=== PATIENT | female | born 1995 | race Caucasian/White ===

== ENCOUNTER 2017-10-20 18:56 | Inpatient (IN) | payer OTHER ==
[~2017-10-20] VITALS: Ht 165.1 cm; Wt 80.5 kg
[2017-10-20] MEDS ORDERED: LACTATED RINGER'S 1000ML 1,000 ML IV PRN (20:24)
[2017-10-20] MEDS ORDERED: PENICILLIN G POTASSIUM IV 6 MU in DEXTROSE 5% 250ML 250 ML IV STA (20:30)
[2017-10-20] MEDS ORDERED: LACTATED RINGER'S 1000ML 500 ML IV PRN (20:46)
[2017-10-20] MEDS: LACTATED RINGER'S 1000ML 1,000 ML IV SCH (20:48)
[2017-10-20] MEDS ORDERED: OXYTOCIN 30 UNITS/500ML NSS IV PRN (21:00)
[2017-10-20 21:05] LABS: HEMATOCRIT 37.4 % (37-47); MEAN CELL VOLUME 88.6 fL (80-100); MEAN CORPUSCULAR HEMOGLOBIN 30.8 pg (25-34); MEAN CORPUSCULAR HGB CONC 34.8 g/dl (32-36); MEAN PLATELET VOLUME 10.1 fL (7.4-10.4); PLATELET COUNT 176 K/uL (130-400); RED BLOOD COUNT 4.22 M/uL (4.2-5.4); WHITE BLOOD COUNT 8.73 K/uL (4.8-10.8)
--- NOTE | 2017-10-20 21:49 | HISTORY & PHYSICAL EXAMINATION ---
DATE OF ADMISSION: 10/20/2017 HISTORY OF PRESENT ILLNESS: The patient is a 22-year-old G1, P0, due date is 10/21/2017, making her 39 weeks and 6 days today. The patient reports spontaneous rupture of membranes at 1500 hours. She presented to labor and delivery this evening. On arrival to labor and delivery, she had no shortness of breath, no chills, no fever. Nitrazine was positive. The patient was examined by a nurse and found to have gross pooling and her pelvic exam was 3 cm, 60% effaced, and -2 station. Bedside ultrasound showed cephalic presentation. Decision therefore made to admit patient and anticipate vaginal delivery. The patient has irregular contractions at 4-6 minutes with moderate intensity. The patient is positive group B strep. COURSE: Has been unremarkable. PAST MEDICAL HISTORY: The patient has history of asthma-induced bronchospasm. PAST SURGICAL HISTORY: None. ALLERGIES: ZITHROMAX. SOCIAL HISTORY: The patient denies tobacco, drug or alcohol use. FAMILY HISTORY: Unremarkable. PHYSICAL EXAMINATION: GENERAL: Well-developed, well-nourished black female in no acute distress. HEART: S1, S2, regular rhythm and rate. LUNGS: Clear to auscultation bilaterally. ABDOMEN: Gravid. heart rate category 1 tracing. PELVIC: 3 cm, 60% effaced, -2 station. Bedside ultrasound cephalic presentation. EXTREMITIES: No cyanosis, clubbing or edema. ASSESSMENT AND PLAN: A 22-year-old 1, para 0, at 39 weeks and 6 days, term premature rupture of membranes, fluid on rupture of membranes is clear. The patient ruptured at 1800 hours. The patient is positive group B strep. Plan therefore is to admit patient, start patient on antibiotics for GBS prophylaxis, and anticipate vaginal delivery.
[2017-10-20 22:00] VITALS: Ht 165.1 cm; Wt 80.5 kg
[2017-10-20] MEDS ORDERED: PRENTAB26 PO (22:10)
[2017-10-21] MEDS: PENICILLIN G POTASSIUM IV 3 MU in DEXTROSE 5% 100ML 100 ML IV PRN ×2 (01:30→05:37)
[2017-10-21] MEDS ORDERED: EpHEDrine SULFATE INJ 50 MG/ML AMP ONE (02:33)
[2017-10-21] MEDS ORDERED: FENTANYL CITRATE INJ 50 MCG/1 ML 2 ML VIAL ONE (02:33)
[2017-10-21] MEDS ORDERED: BUPIVACAINE 0.25% 30 ML VIAL ONE (02:33)
[2017-10-21] MEDS ORDERED: FENTANYL 2MCG/ML ROPIV 1.25MG/ML 100ML BAG EPI ONE (02:33)
[2017-10-21] MEDS ORDERED: NALOXONE HCL INJ 1 MG in SODIUM CHLORIDE 0.9% 1000ML 1,000 ML IV PRN (03:36)
[2017-10-21] MEDS ORDERED: LACTATED RINGER'S 1000ML 500 ML IV PRN (03:36)
[2017-10-21] MEDS: LACTATED RINGER'S 1000ML 1,000 ML IV SCH (03:42)
[2017-10-21] MEDS ORDERED: NALBUPHINE HCL INJ 10 MG/ML AMP IV PRN (03:45)
[2017-10-21] MEDS ORDERED: EpHEDrine SULFATE INJ 50 MG/ML AMP IV PRN (03:45)
[2017-10-21] MEDS ORDERED: PROMETHAZINE HCL INJ 6.25 MG in SODIUM CHLORIDE 0.9% 50ML 50 ML IV PRN (03:45)
[2017-10-21] MEDS ORDERED: DiphenhydrAMINE HCL 50 MG/ML VIAL IV PRN (03:45)
[2017-10-21] MEDS ORDERED: NALOXONE HCL INJ 0.4 MG/1 ML VIAL/CARP IV PRN (03:45)
[2017-10-21] MEDS ORDERED: ONDANSETRON INJ 2 MG/ML 2 ML VIAL IV PRN (03:45)
[2017-10-21] MEDS: FENTANYL 2MCG/ML ROPIV 1.25MG/ML 100ML BAG EPI PRN ×2 (05:38→06:51)
[2017-10-21] MEDS ORDERED: MISOPROSTOL 200 MCG TAB ONE (07:33)
[2017-10-21 07:46] LABS: BENZODIAZEPINE, URINE NEG (NEG); COCAINE,URINE NEG (NEG); PHENCYCLIDINE, URINE NEG (NEG)
[2017-10-21] MEDS ORDERED: SUPERCREAM 0.870 % 15GM JAR EXT PRN (08:00)
[2017-10-21] MEDS ORDERED: BENZOCAINE 20% AER SPR 82.5 GM CAN EXT PRN (08:00)
[2017-10-21] MEDS ORDERED: OXYCODONE/ACETAMINOPHEN 5-325 TAB PO PRN (08:00)
[2017-10-21] MEDS ORDERED: LANOLIN OINT EXT PRN ×2 (08:00)
[2017-10-21] MEDS ORDERED: MISOPROSTOL 200 MCG TAB PR SCH (08:00)
[2017-10-21] MEDS ORDERED: ACETAMINOPHEN/CODEINE 300/30MG TAB PO PRN ×2 (08:00)
[2017-10-21] MEDS ORDERED: OXYTOCIN 30 UNITS/500ML NSS IV PRN (08:00)
[2017-10-21] MEDS ORDERED: HYDROCORTISONE ACETATE 25 MG SUPP PR PRN (08:00)
--- NOTE | 2017-10-21 08:41 | Anesthesia Procedure Note ---
Anesthesia Epidural Removal Nt Date & Time Oct 21, 2017 at 08:41 Vital Signs Pain Intensity: 5.0 Notes Mental Status: alert / awake / arousable, participated in evaluation Nausea / Vomiting: adequately controlled Pain: adequately controlled Airway Patency, RR, SpO2: stable & adequate BP & HR: stable & adequate Hydration State: stable & adequate Neuraxial Anesthesia: was administered, sensory block is resolving Anesthetic Complications: no major complications apparent, pt satisfied with anesthetic care Epidural: removed without complications, with tip intact
[2017-10-21] MEDS: IBUPROFEN 600 MG TAB PO PRN ×3 (09:35→17:30)
[2017-10-21] MEDS: DOCUSATE SODIUM 100 MG CAP PO SCH ×2 (13:46→20:24)
[2017-10-21] MEDS: FERROUS SULFATE 325 MG TAB PO SCH (13:46)
[2017-10-21] MEDS: PRENATAL VITAMIN TAB PO SCH (13:46)
[2017-10-21] MEDS: ACETAMINOPHEN 325 MG TAB PO PRN ×2 (13:47→20:25)
[2017-10-21 14:30] VITALS: BP 105/69; PULSE 80; TEMP 36.8
[2017-10-21 20:00] VITALS: BP 118/79; PULSE 72; TEMP 36.8
[2017-10-22 00:50] VITALS: BP 118/74; PULSE 79; TEMP 36.5; O2SAT 99
[2017-10-22] MEDS: IBUPROFEN 600 MG TAB PO PRN ×4 (00:52→22:47)
[2017-10-22 04:45] VITALS: BP 96/63; PULSE 76; TEMP 36.7; O2SAT 99
[2017-10-22 07:46] VITALS: BP 98/65; PULSE 59; TEMP 36.7
[2017-10-22] MEDS: PRENATAL VITAMIN TAB PO SCH (08:14)
[2017-10-22] MEDS: DOCUSATE SODIUM 100 MG CAP PO SCH ×2 (08:14→20:35)
[2017-10-22] MEDS: FERROUS SULFATE 325 MG TAB PO SCH (08:14)
[2017-10-22] MEDS: ACETAMINOPHEN 325 MG TAB PO PRN ×2 (08:16→15:54)
--- NOTE | 2017-10-22 09:57 | OB/GYN Progress Note ---
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 Patient is seen and examined. She feels well, no complaints. Ambulating without dizziness Voiding without difficulty Tolerating regular diet with out N&V Bleeding is minimal No fever/ chills/ CP/ SOB/ N&V/ Leg pain Breast feeding without problems Date Time Temp Pulse Resp B/P (MAP) Pulse Ox O2 Delivery O2 Flow Rate FiO2 10/22/17 08:15 Room Air 10/22/17 07:46 36.7 59 16 98/65 (76) Room Air 10/22/17 04:45 36.7 76 18 96/63 (74) 99 Room Air 10/22/17 00:50 99 Room Air 10/22/17 00:50 36.5 79 18 118/74 (89) 99 Room Air 10/21/17 20:00 36.8 72 16 118/79 (92) Room Air 10/21/17 14:30 Room Air 10/21/17 14:30 36.8 80 20 105/69 (81) Room Air PE: General: Alert, orientedx3, NAD Abd: soft, NT, fundus firm, below Umbilicus Perineum intact, Lochia rubra minimal Ext; NT, no edema AP: 22 yo s/p , ppd# 1 VSS Afebrile doing well Continue routine care All questions were answered D/C home tomorrow
[2017-10-22 10:29] LABS: HEMATOCRIT 38.2 % (37-47)
[2017-10-22 16:25] VITALS: BP 111/71; PULSE 60; TEMP 36.9; O2SAT 98
[2017-10-22] MEDS ORDERED: BISACODYL 5 MG TABEC PO SCH (20:00)
[2017-10-22 23:40] VITALS: BP 116/76; PULSE 70; TEMP 36.4
[2017-10-23 06:43] LABS: HEMATOCRIT 36.8 % (37-47); MEAN CELL VOLUME 88.7 fL (80-100); MEAN CORPUSCULAR HEMOGLOBIN 30.1 pg (25-34); MEAN PLATELET VOLUME 9.9 fL (7.4-10.4); PLATELET COUNT 186 K/uL (130-400); RED BLOOD COUNT 4.15 M/uL (4.2-5.4); WHITE BLOOD COUNT 10.89 K/uL (4.8-10.8)
[2017-10-23] MEDS ORDERED: BISACODYL 10 MG SUPP PR PRN (07:00)
[2017-10-23 07:55] VITALS: BP 112/76; PULSE 95; TEMP 36.6
[2017-10-23] MEDS: DOCUSATE SODIUM 100 MG CAP PO SCH (08:12)
[2017-10-23] MEDS: FERROUS SULFATE 325 MG TAB PO SCH (08:12)
[2017-10-23] MEDS: PRENATAL VITAMIN TAB PO SCH (08:12)
[2017-10-23] MEDS: IBUPROFEN 600 MG TAB PO PRN ×2 (08:13→17:32)
--- NOTE | 2017-10-23 10:04 | OB/GYN Progress Note ---
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 Subjective conversation w/ patient, physical exam Ambulation: ambulating normally Voiding: no voiding problems Passing Gas: Yes Diet Tolerance: Regular Diet Lochia: Moderate Feeding Type: Breast Feeding Objective Vital Signs Date Time Temp Pulse Resp B/P (MAP) Pulse Ox O2 Delivery O2 Flow Rate FiO2 10/23/17 08:00 Room Air 10/23/17 07:55 36.6 95 16 112/76 (88) Room Air 10/22/17 23:40 Room Air 10/22/17 23:40 36.4 70 18 116/76 (89) Room Air 10/22/17 16:25 36.9 60 16 111/71 (84) 98 Room Air 10/22/17 16:25 Room Air Laboratory Results Last 24 Hours Test 10/22/17 10:23 10/23/17 06:09 Hemoglobin 13.2 g/dL 12.5 g/dL Hematocrit 38.2 % 36.8 % White Blood Count 10.89 K/uL Red Blood Count 4.15 M/uL Mean Corpuscular Volume 88.7 fL Mean Corpuscular Hemoglobin 30.1 pg Mean Corpuscular Hemoglobin Concent 34.0 g/dl RDW Standard Deviation 43.8 fL RDW Coefficient of Variation 13.6 % Platelet Count 186 K/uL Mean Platelet Volume 9.9 fL Assessment and Plan Day Number: 3 Continue Routine Care: C/sec day #3 Pt doing well disch home with instructions
[2017-10-23] MEDS ORDERED: CLC100 PO (10:06)
[2017-10-23] MEDS ORDERED: MTR600X PO (10:06)
[2017-10-23] MEDS ORDERED: FRRS300 PO (10:06)
--- NOTE | 2017-10-23 10:07 | Discharge Instructions ---
Discharge Instructions Date of Service Oct 23, 2017. Admission Reason for Admission: R/O Ruptured Membranes Discharge Discharge Diagnosis / Problem: Discharge Goals Goal(s): Routine recovery after delivery Activity Recommendations Activity Limitations: as noted below ACTIVITY RECOMMENDATIONS: * Gradual return to full activity over the next 2-3 weeks. * No lifting - nothing heavier than baby over the next 2-3 weeks. * Do not engage in vigorous exercise, sexual activity or sports until cleared by your physician. * Do not drive or operate any motorized equipment until cleared by your physician. * You may shower/bathe daily. BREAST CARE: If you are not breast feeding: * Wear a supportive bra 24 hours a day for one to two weeks. * Avoid stimulating your breasts and nipples as much as possible during the first few weeks after delivery. * When taking a shower, have the warm water hit your back, not breasts. * When your breasts feel full, apply ice packs. Usually three to four times a day helps ease the discomfort. * Take a mild pain medication (Tylenol/Motrin) when you are uncomfortable. If breast feeding: * Use breast milk to lubricate nipples. Lansinoh cream may be used for sore nipples. You do not need to remove cream prior to breast feeding. If using a different brand of cream, check the label for directions regarding removal of cream prior to nursing. * Wear a supportive bra. * If having problems with breasts or breast feeding, call a car sales consultant or your health care provider. EPISIOTOMY CARE: After delivery, if you have an episiotomy (stitches), the following steps will ease discomfort and aid healing. * For the first 24 hours after delivery, place ice packs next to your episiotomy to help reduce swelling. * After the first 24 hour-period, sitz baths, either portable or in the tub, are suggested. A shower with a shower arm sprayed over the episiotomy may be comforting. * Rachel care should be done after each voiding and bowel movement. Squirt warm water from a plastic bottle over the perineum (region of the body between the anus and urinary opening) and pat dry. * Use Dermoplast to ease discomfort. Shake container. [place] directly over the episiotomy. * Place a Tucks on a clean sanitary pad next to your episiotomy. OVER THE COUNTER MEDICATION: * For discomfort or pain, you may use Acetaminophen (Tylenol), Ibuprofen (Advil ), or Naproxen (Aleve) following the package directions. * For constipation you may use Colace following the package directions. SPECIAL CARE INSTRUCTIONS: When you are discharged from the hospital, it is important for you to follow the instructions listed below: * During the first week at home, you should be able to care for yourself and your baby. In addition, the usual light household activities are encouraged. * Limit your activities to the way you feel. Do not try to clean the house or move furniture. Be sensible. * If you actively engage in sports and have done so up until the time of your delivery, you may resume these activities as soon as you feel able. This may take up to one month or even longer. Use good judgment. * Continue to take your vitamins for at least six weeks after the of your baby. * Your diet need not be limited unless you were on a special diet before your delivery. Breast-feeding mothers need around 2500 calories per day and at least 64-80 ounces of fluid per day (8 to 10 glasses). * You should eat foods from the four major food groups. Crash diets or fad diets are to be avoided. Eating lean meats, fresh fruits and vegetables, low-fat dairy products, high fiber foods and a regular exercise program, will help you get back to your pre- weight without putting your health at risk. * Constipation is sometimes a problem after delivery. Take a mild laxative as needed. If breast feeding, Milk of Magnesia is acceptable to use. You may use a suppository or Fleets enema if no episiotomy. * A daily shower or tub bath is suggested. Be sure to thoroughly and gently dry the perineum. * A bloody vaginal discharge will usually continue until around four weeks post . A small amount of bleeding may continue for as long as six weeks. Vaginal discharge changes from the bright red bleeding after delivery to pink then brownish and finally yellowish-pink before becoming white and disappearing. * Bleeding may increase with activity. Your first period may come in 4-8 weeks. If you are breast feeding, your period may be delayed even longer. * Lorena (sex) can begin whenever both you and your partner feel comfortable and do not have any form of genital infection. It is recommended that you wait until after your return appointment and discuss with your physician. If you have questions, please talk to your health care practitioner. A condom should be used to prevent infection and . * Foreplay, gentle intercourse and lubrication is very important the first several times to prevent pain. A water-based lubricant such as K-Y jelly or Astroglide may be used. * Tampons may be used six weeks after delivery. * Douching should be avoided for 6 weeks after delivery. * If you have RH negative blood and your baby is RH positive, you will receive RHOGAM by injection prior to discharge. The nurse will give you a card to keep with you that has the date and place that you received RHOGAM after delivery. * During your care, you had a Rubella screen done to check for the presence of rubella antibodies in your blood. If your test was negative, you will receive a Rubella vaccine prior to discharge. This vaccine may cause a fever, soreness at the injection site and flu-like symptoms. If these symptoms persist, notify your health care practitioner. is not advised for three months after a Rubella vaccine. There is a higher chance of having a baby with defects if conceived within three months of getting the vaccine. * If you were discharged 24 hours from delivery or before 48 hours: Visiting nurses will come to your home 48 hours after discharge to assess you and your baby. The visiting nurse will meet with you while you are in the hospital to arrange a time and get directions to your home. * Verbalizes understanding of car seat law as reviewed with patient nursing. * Car Seat hand-out given and reviewed with patient by nursing. * Shaken baby information reviewed with patient by nursing. Call you doctor if: * Heavy bleeding (saturating several pads an hour) or passing clots the size of your fist. * A fever >101 degrees F (38.3 degrees C) on two occasions four hours apart and/or chills. * Unusual pain in the pelvic or vaginal areas. * "Baby Blues" lasting longer than two weeks. If you have any questions or concerns, call your health care practitioner at . FOLLOW-UP VISIT: * Please call the office at to schedule a 6 week examination. It is important you keep this appointment. * It is important for you to make arrangements for either yearly or twice yearly check-ups thereafter. . Current Hospital Diet Patient's current hospital diet: Regular OB Diet Discharge Diet Recommended Diet: Regular Diet Pending Studies Studies pending at discharge: no Medical Emergencies . Who to Call and When: Medical Emergencies: If at any time you feel your situation is an emergency, please call 911 immediately. . Non-Emergent Contact Non-Emergency issues call your: Specialist . . "Provider Documentation" section prepared by Harmeet Penaloza. . VTE Core Measure Inpt VTE Proph given/why not?: Treatment not indicated
[2017-10-23] MEDS ORDERED: DIPHTHERIA/TETANUS/PERTUSSIS 0.5 ML SYR/VIAL IM. ONE (11:00)
[2017-10-23] MEDS ORDERED: MISC-696 EXT (12:31)
[2017-10-23 17:30] VITALS: BP 123/73; PULSE 64; TEMP 36.9
[2017-10-23] MEDS: ACETAMINOPHEN 325 MG TAB PO PRN (17:35)
[2017-10-23 22:30] VITALS: BP_DIAS 73; PULSE 64; TEMP 36.9
--- NOTE | 2017-11-02 22:56 | OPERATIVE REPORT ---
DATE OF OPERATION: 10/21/2017 DELIVERY NOTE The patient delivered a live male on 10/21/2017 at 0715 hours. weight 7 pounds 3 ounces, that is 3273 grams. was delivered in left occiput anterior presentation. There was no nuchal cord. Infant was placed on mother's abdomen, cord clamped and cut. Cord blood was obtained. Placenta was spontaneously delivered as 3-vessel cord. Estimated blood loss was 500 mL. Inspection of the perineum showed a second-degree midline laceration which was repaired in layers with 2-0 Vicryl. There was good hemostasis at end of the procedure. Infant's weight as stated above is 3273 grams. was 8 and 9. All instruments were removed from the vagina including retractors, needles and sponges and accounted for x2. Baby and mother are doing well in stable condition. I attest to the content of the Intraoperative Record and any orders documented therein. Any exception s are noted below.
== END 2017-10-23 22:30 | disposition home or self-care (01) | DRG 775 ==
LOC: C.OPB 18:56 → C.LD 18:56 → C.OPB 20:27 → C.OBG 10-21 13:44
PROVIDERS: ADMIT Obstetrics & Gynecology; ATTEND Obstetrics & Gynecology
PROC: 0KQM0ZZ Repair Perineum Muscle, Open Approach (ICD-10-PCS; principal; 2017-10-21)
PROC: 10E0XZZ Delivery of Products of Conception, External Approach (ICD-10-PCS; principal; 2017-10-21)
DX: O42.92 Full-term premature rupture of membranes, unspecified as to length of time between rupture and onset of labor (principal); O70.1 Second degree perineal laceration during delivery; Z3A.39 39 weeks gestation of pregnancy; Z22.330 Carrier of Group B streptococcus; Z37.0 Single live birth